=== PATIENT | female | born 1935 | race African-American/Black ===

== ENCOUNTER 2017-12-17 18:06 | Emergency (ER) | payer OTHER, MEDICAID ==
[2017-12-17 20:03] LABS: ADD MAN DIFF? NO
[2017-12-17 20:20] LABS: BASOPHILS % 0.2 % (0.0-2.0); EOSINOPHILS # 0.1 10^3/ul (0.0-0.5); EOSINOPHILS % 1.6 % (0.0-7.0); HEMATOCRIT 43.3 % (37.0-47.0); HEMOGLOBIN 14.1 g/dl (12.0-16.0); LYMPHOCYTES # 2.5 10^3/ul (0.8-2.9); LYMPHOCYTES % 44.1 % (15.0-51.0); MEAN CORPUSCULAR HEMOGLOBIN 26.7 pg (29.0-33.0); MEAN CORPUSCULAR HGB CONC 32.6 g/dl (32.0-37.0); MEAN CORPUSCULAR VOLUME 81.9 fl (82.0-101.0); MEAN PLATELET VOLUME 11.7 fl (7.4-10.4); MONOCYTE # 0.3 10^3/ul (0.3-0.9); MONOCYTES % 5.9 % (0.0-11.0); NEUTROPHIL # 2.7 10^3/ul (1.6-7.5); NEUTROPHILS % 47.8 % (39.0-77.0); PLATELET COUNT 176 10^3/UL (140-415); RED BLOOD COUNT 5.29 10^6/ul (4.20-5.40); RED CELL DISTRIBUTION WIDTH 14.9 % (11.5-14.5)
[2017-12-17 20:20] LABS: WHITE BLOOD COUNT 5.6 10^3/ul (4.8-10.8)
[2017-12-17] MEDS: SOD CHLORIDE 0.9% 1,000 ML IV (20:24)
[2017-12-17] MEDS: morphine 4 MG/ML VIAL IV (20:24)
[2017-12-17] MEDS: ONDANSETRON 4 MG INJ IV (20:24)
[2017-12-17 20:56] LABS: ADD UMIC YES; ALANINE AMINOTRANSFERASE 15 IU/L (13-69); ALBUMIN 4.4 g/dl (3.3-4.9); ALBUMIN/GLOBULIN RATIO 0.97; ALKALINE PHOSPHATASE 70 IU/L (42-121); ANION GAP 16 (8-16); ASPARTATE AMINO TRANSFERASE 28 IU/L (15-46); BILIRUBIN,INDIRECT 0.6 mg/dl (0-1.1); BILIRUBIN,TOTAL 0.6 mg/dl (0.2-1.3); BLOOD UREA NITROGEN 16 mg/dl (7-20); CARBON DIOXIDE 30 mmol/L (21-31); CHLORIDE 99 mmol/L (97-110); CREATININE 1.63 mg/dl (0.44-1.00); GLUCOSE 76 mg/dl (70-220); LIPASE 53 U/L (23-300); POTASSIUM 3.4 mmol/L (3.5-5.1); SODIUM 142 mmol/L (135-144); TOTAL PROTEIN 8.9 g/dl (6.1-8.1); UR ASCORBIC ACID NEGATIVE (NEGATIVE); UR BACTERIA FEW /HPF (NONE SEEN); UR BILIRUBIN (Dip) NEGATIVE (NEGATIVE); UR BLOOD (Dip) 3+ mg/dL (NEGATIVE); UR CLARITY CLOUDY (CLEAR); UR COLOR YELLOW (YELLOW); UR GLUCOSE (Dip) NEGATIVE (NEGATIVE); UR HYALINE CAST FEW /HPF (NONE SEEN); UR KETONES (Dip) NEGATIVE (NEGATIVE); UR LEUKOCYTE ESTERASE (Dip) 3+ Leu/ul (NEGATIVE); UR MUCUS FEW /HPF (NONE SEEN); UR NITRITE (Dip) NEGATIVE (NEGATIVE); UR RBC 98 /HPF (0-5); UR SPECIFIC GRAVITY (Dip) 1.014 (1.003-1.030); UR SQUAMOUS EPITHELIAL CELL MODERATE /HPF (FEW); UR TOTAL PROTEIN (Dip) 2+ mg/dl (NEGATIVE); UR TRANSITIONAL EPI CELL FEW /HPF (NONE SEEN); UR UROBILINOGEN (Dip) NEGATIVE (NEGATIVE); UR WBC 23 /HPF (0-5)
[2017-12-17 21:07] LABS: TROPONIN-I 0.022 ng/ml (0.00-0.12)
[2017-12-17] MEDS: CIPROFLOXACIN 500 MG TAB PO (22:22)
[2017-12-17] MEDS: POTASSIUM CHLORIDE (SR) 20 MEQ TAB PO (22:22)
== END 2017-12-17 22:50 | disposition home or self-care (01) ==
LOC: E/R 18:06
DX: N30.90 Cystitis, unspecified without hematuria (principal); E87.6 Hypokalemia; I10 Essential (primary) hypertension; I25.10 Atherosclerotic heart disease of native coronary artery without angina pectoris; R51 Headache; Z79.01 Long term (current) use of anticoagulants
CPT/HCPCS: 36415; 70450; 71045; 80053; 81001; 83690; 84484; 85025; 93005; 96374; 96375; 99285-25

== ENCOUNTER 2018-01-22 10:40 | Emergency (ER) | payer OTHER, MEDICAID ==
[2018-01-22] MEDS: SOD CHLORIDE 0.9% 1,000 ML IV (11:45)
[2018-01-22] MEDS: LIDOCAINE/MYLANTA 40 ML BTL PO (11:49)
[2018-01-22] MEDS: BELLADONNA/PHENOBARBITAL TAB PO (11:49)
[2018-01-22 12:07] LABS: ADD MAN DIFF? NO; BASOPHILS % 0.6 % (0.0-2.0); EOSINOPHILS # 0.1 10^3/ul (0.0-0.5); HEMATOCRIT 39.9 % (37.0-47.0); HEMOGLOBIN 12.9 g/dl (12.0-16.0); LYMPHOCYTES % 55.1 % (15.0-51.0); MEAN CORPUSCULAR HEMOGLOBIN 26.8 pg (29.0-33.0); MEAN CORPUSCULAR HGB CONC 32.3 g/dl (32.0-37.0); MONOCYTE # 0.3 10^3/ul (0.3-0.9); MONOCYTES % 7.1 % (0.0-11.0); NEUTROPHIL # 1.2 10^3/ul (1.6-7.5); NEUTROPHILS % 34.6 % (39.0-77.0); PLATELET COUNT 189 10^3/UL (140-415); RED BLOOD COUNT 4.81 10^6/ul (4.20-5.40); RED CELL DISTRIBUTION WIDTH 15.2 % (11.5-14.5)
[2018-01-22 12:07] LABS: WHITE BLOOD COUNT 3.5 10^3/ul (4.8-10.8)
[2018-01-22 12:25] LABS: ALANINE AMINOTRANSFERASE 18 IU/L (13-69); ALBUMIN 3.7 g/dl (3.3-4.9); ALBUMIN/GLOBULIN RATIO 1.02; ALKALINE PHOSPHATASE 49 IU/L (42-121); ANION GAP 12 (8-16); ASPARTATE AMINO TRANSFERASE 22 IU/L (15-46); BILIRUBIN,INDIRECT 0.7 mg/dl (0-1.1); BILIRUBIN,TOTAL 0.7 mg/dl (0.2-1.3); BLOOD UREA NITROGEN 21 mg/dl (7-20); CALCIUM 9.8 mg/dl (8.4-10.2); CARBON DIOXIDE 34 mmol/L (21-31); CHLORIDE 104 mmol/L (97-110); CREATININE 1.06 mg/dl (0.44-1.00); GLUCOSE 102 mg/dl (70-220); LIPASE 49 U/L (23-300); POTASSIUM 3.9 mmol/L (3.5-5.1); SODIUM 146 mmol/L (135-144); TOTAL PROTEIN 7.3 g/dl (6.1-8.1)
[2018-01-22 12:40] LABS: TROPONIN-I < 0.012 ng/ml (0.000-0.120)
[2018-01-22] MEDS: ONDANSETRON 4 MG INJ IV (13:14)
[2018-01-22] MEDS: morphine 2 MG INJ IV (13:14)
[2018-01-22 14:06] LABS: ADD UMIC YES; UR ASCORBIC ACID NEGATIVE (NEGATIVE); UR BACTERIA FEW /HPF (NONE SEEN); UR BILIRUBIN (Dip) NEGATIVE (NEGATIVE); UR BLOOD (Dip) 1+ mg/dL (NEGATIVE); UR CLARITY CLEAR (CLEAR); UR COLOR YELLOW (YELLOW); UR GLUCOSE (Dip) NEGATIVE (NEGATIVE); UR KETONES (Dip) NEGATIVE (NEGATIVE); UR LEUKOCYTE ESTERASE (Dip) 2+ Leu/ul (NEGATIVE); UR NITRITE (Dip) NEGATIVE (NEGATIVE); UR RBC 3 /HPF (0-5); UR SPECIFIC GRAVITY (Dip) 1.009 (1.003-1.030); UR SQUAMOUS EPITHELIAL CELL FEW /HPF (FEW); UR TOTAL PROTEIN (Dip) NEGATIVE (NEGATIVE); UR UROBILINOGEN (Dip) NEGATIVE (NEGATIVE); UR WBC 10 /HPF (0-5)
[2018-01-22] MEDS: SOD CHLORIDE 0.9% 100 ML (15:44)
[2018-01-22] MEDS: IODIXANOL LOCM 100 ML BTL (15:44)
== END 2018-01-22 18:40 | disposition home or self-care (01) ==
LOC: E/R 18:40
DX: K59.00 Constipation, unspecified (principal); R53.1 Weakness; I48.2 Chronic atrial fibrillation; I10 Essential (primary) hypertension; I25.10 Atherosclerotic heart disease of native coronary artery without angina pectoris; Z79.01 Long term (current) use of anticoagulants
CPT/HCPCS: 36415; 71045; 74177; 80053; 81001; 83690; 84484; 85025; 87086; 93005; 96374; 96375; 99285-25

== ENCOUNTER 2018-10-09 19:19 | Inpatient (IN) | payer OTHER, MEDICAID ==
[2018-10-09 20:49] LABS: ADD MAN DIFF? NO
[2018-10-09 20:50] LABS: WHITE BLOOD COUNT 5.8 10^3/ul (4.8-10.8)
[2018-10-09 20:50] LABS: BASOPHILS % 0.2 % (0.0-2.0); EOSINOPHILS # 0.1 10^3/ul (0.0-0.5); EOSINOPHILS % 0.9 % (0.0-7.0); HEMATOCRIT 41.1 % (37.0-47.0); HEMOGLOBIN 13.5 g/dl (12.0-16.0); LYMPHOCYTES # 1.7 10^3/ul (0.8-2.9); LYMPHOCYTES % 30.1 % (15.0-51.0); MEAN CORPUSCULAR HEMOGLOBIN 27.3 pg (29.0-33.0); MEAN CORPUSCULAR HGB CONC 32.8 g/dl (32.0-37.0); MEAN PLATELET VOLUME 10.7 fl (7.4-10.4); MONOCYTE # 0.4 10^3/ul (0.3-0.9); MONOCYTES % 6.6 % (0.0-11.0); NEUTROPHIL # 3.6 10^3/ul (1.6-7.5); NEUTROPHILS % 61.9 % (39.0-77.0); PLATELET COUNT 242 10^3/UL (140-415); RED BLOOD COUNT 4.95 10^6/ul (4.20-5.40); RED CELL DISTRIBUTION WIDTH 13.6 % (11.5-14.5)
[2018-10-09 20:56] LABS: ADD UMIC YES; UR ASCORBIC ACID 40 mg/dL (NEGATIVE); UR BILIRUBIN (Dip) NEGATIVE (NEGATIVE); UR BLOOD (Dip) NEGATIVE (NEGATIVE); UR CLARITY SLIGHTLY CLOUDY (CLEAR); UR COLOR YELLOW (YELLOW); UR GLUCOSE (Dip) NEGATIVE (NEGATIVE); UR KETONES (Dip) NEGATIVE (NEGATIVE); UR LEUKOCYTE ESTERASE (Dip) 2+ Leu/ul (NEGATIVE); UR NITRITE (Dip) NEGATIVE (NEGATIVE); UR RBC 4 /HPF (0-5); UR SPECIFIC GRAVITY (Dip) 1.012 (1.003-1.030); UR SQUAMOUS EPITHELIAL CELL FEW /HPF (FEW); UR TOTAL PROTEIN (Dip) NEGATIVE (NEGATIVE); UR UROBILINOGEN (Dip) NEGATIVE (NEGATIVE); UR WBC 22 /HPF (0-5)
[2018-10-09] MEDS: SOD CHLORIDE 0.9% 1,000 ML IV (21:02)
[2018-10-09] MEDS: morphine 2 MG INJ IV (21:02)
[2018-10-09] MEDS: FAMOTIDINE 20 MG INJ IV (21:03)
[2018-10-09] MEDS: ONDANSETRON 4 MG INJ IV (21:03)
[2018-10-09 21:14] LABS: ALKALINE PHOSPHATASE 71 IU/L (42-121); ANION GAP 9 (5-13); ASPARTATE AMINO TRANSFERASE 31 IU/L (15-46); BILIRUBIN,INDIRECT 0.5 mg/dl (0-1.1); BILIRUBIN,TOTAL 0.5 mg/dl (0.2-1.3); BLOOD UREA NITROGEN 24 mg/dl (7-20); CALCIUM 10.3 mg/dl (8.4-10.2); CARBON DIOXIDE 31 mmol/L (21-31); CHLORIDE 95 mmol/L (97-110); CREATININE 1.26 mg/dl (0.44-1.00); GLUCOSE 163 mg/dl (70-220); LIPASE 32 U/L (23-300); SODIUM 135 mmol/L (135-144); TOTAL PROTEIN 8.4 g/dl (6.1-8.1)
[2018-10-09 21:15] LABS: ALANINE AMINOTRANSFERASE < 6 IU/L (13-69)
[2018-10-09 21:25] LABS: TROPONIN-I < 0.012 ng/ml (0.000-0.120)
[2018-10-09] MEDS: NITROFURANTOIN (SR) 100 MG CAP PO (23:28)
[2018-10-09] MEDS ORDERED: ONDANSETRON 4 MG INJ IV (23:30)
[2018-10-09] MEDS ORDERED: ACETAMINOPHEN 325 MG TAB PO (23:30)
[2018-10-10] MEDS ORDERED: NACL 0.9% 3 ML SYG IV (02:00)
[2018-10-10] MEDS ORDERED: ACETAMINOPHEN 325 MG TAB PO (02:00)
[2018-10-10] MEDS ORDERED: ONDANSETRON 4 MG INJ IV (02:00)
[2018-10-10] MEDS: POTASSIUM CHLORIDE (SR) 20 MEQ TAB PO ×2 (02:16→18:58)
[2018-10-10] MEDS: SOD CHLORIDE 0.9% 1,000 ML IV ×2 (02:19→21:42)
[2018-10-10] MEDS: PANTOPRAZOLE (EC) 40 MG TAB PO (05:36)
[2018-10-10] MEDS ORDERED: PANTOPRAZOLE (EC) 40 MG TAB PO (06:00)
[2018-10-10] MEDS ORDERED: DILTIAZEM-D5W 125MG/125ML DRIP 125 ML IV (08:00)
[2018-10-10] MEDS ORDERED: SUCRALFATE (100 MG/ML) 10ML CUP PO (09:00)
[2018-10-10] MEDS: SUCRALFATE (100 MG/ML) 10ML CUP PO ×4 (10:04→20:28)
[2018-10-10] MEDS: APIXABAN 5 MG TABLET PO ×2 (10:04→20:29)
[2018-10-10] MEDS: HYDROCODONE/APAP (5/325) TAB PO ×2 (13:42→23:48)
[2018-10-10] MEDS: DRONEDARONE HYDROCHLORIDE 400 MG TAB PO (18:58)
[2018-10-10] MEDS: CYCLOBENZAPRINE 10 MG TAB PO (18:59)
[2018-10-10] MEDS: MONTELUKAST 10 MG TAB PO (20:28)
[2018-10-11 05:49] LABS: ADD MAN DIFF? NO
[2018-10-11 05:55] LABS: BASOPHILS % 0.5 % (0.0-2.0); EOSINOPHILS # 0.1 10^3/ul (0.0-0.5); EOSINOPHILS % 2.3 % (0.0-7.0); HEMOGLOBIN 10.9 g/dl (12.0-16.0); LYMPHOCYTES # 1.9 10^3/ul (0.8-2.9); LYMPHOCYTES % 47.3 % (15.0-51.0); MEAN CORPUSCULAR HEMOGLOBIN 27.6 pg (29.0-33.0); MEAN CORPUSCULAR HGB CONC 32.1 g/dl (32.0-37.0); MEAN CORPUSCULAR VOLUME 86.1 fl (82.0-101.0); MEAN PLATELET VOLUME 11.2 fl (7.4-10.4); MONOCYTE # 0.3 10^3/ul (0.3-0.9); MONOCYTES % 8.6 % (0.0-11.0); NEUTROPHIL # 1.6 10^3/ul (1.6-7.5); PLATELET COUNT 204 10^3/UL (140-415); RED BLOOD COUNT 3.95 10^6/ul (4.20-5.40); RED CELL DISTRIBUTION WIDTH 13.8 % (11.5-14.5)
[2018-10-11] MEDS: PANTOPRAZOLE (EC) 40 MG TAB PO (06:04)
[2018-10-11 06:19] LABS: HEMOGLOBIN A1C 5.7 % (0-5.9)
[2018-10-11 06:20] LABS: ALANINE AMINOTRANSFERASE 6 IU/L (13-69); ALBUMIN 3.3 g/dl (3.3-4.9); ALBUMIN/GLOBULIN RATIO 0.91; ALKALINE PHOSPHATASE 46 IU/L (42-121); ANION GAP 8 (5-13); ASPARTATE AMINO TRANSFERASE 25 IU/L (15-46); BILIRUBIN,INDIRECT 0.2 mg/dl (0-1.1); BILIRUBIN,TOTAL 0.2 mg/dl (0.2-1.3); BLOOD UREA NITROGEN 11 mg/dl (7-20); CALCIUM 9.2 mg/dl (8.4-10.2); CARBON DIOXIDE 33 mmol/L (21-31); CHLORIDE 101 mmol/L (97-110); CREATININE 0.93 mg/dl (0.44-1.00); GLUCOSE 118 mg/dl (70-220); MAGNESIUM 1.8 mg/dl (1.7-2.5); POTASSIUM 4.5 mmol/L (3.5-5.1); SODIUM 142 mmol/L (135-144); TOTAL PROTEIN 6.9 g/dl (6.1-8.1)
[2018-10-11] MEDS: DRONEDARONE HYDROCHLORIDE 400 MG TAB PO ×2 (09:15→18:07)
[2018-10-11] MEDS: SUCRALFATE (100 MG/ML) 10ML CUP PO ×4 (09:15→21:00)
[2018-10-11] MEDS: APIXABAN 5 MG TABLET PO ×2 (09:16→21:00)
[2018-10-11] MEDS: SOD CHLORIDE 0.9% 1,000 ML IV (18:08)
[2018-10-11] MEDS: MONTELUKAST 10 MG TAB PO (21:00)
[2018-10-11] MEDS: HYDROCODONE/APAP (5/325) TAB PO (21:09)
[2018-10-12] MEDS: PANTOPRAZOLE (EC) 40 MG TAB PO (05:34)
[2018-10-12] MEDS: SOD CHLORIDE 0.9% 1,000 ML IV ×2 (08:07→13:42)
[2018-10-12] MEDS: APIXABAN 5 MG TABLET PO (08:15)
[2018-10-12] MEDS: SUCRALFATE (100 MG/ML) 10ML CUP PO ×2 (08:16→13:26)
[2018-10-12] MEDS: DRONEDARONE HYDROCHLORIDE 400 MG TAB PO (08:17)
[2018-10-12] MEDS: POLYETHYLENE GLYCOL 17 GM PACKET PO (15:00)
== END 2018-10-12 16:20 | disposition home or self-care (01) | DRG 309 ==
LOC: 6WM 23:20 → E/R 19:19 → 6WM 10-10 23:29
DX: I48.0 Paroxysmal atrial fibrillation (principal); N17.9 Acute kidney failure, unspecified; I47.2 Ventricular tachycardia; E87.6 Hypokalemia; I10 Essential (primary) hypertension; I25.10 Atherosclerotic heart disease of native coronary artery without angina pectoris; G89.29 Other chronic pain; E86.0 Dehydration; R10.13 Epigastric pain; M54.2 Cervicalgia; I25.2 Old myocardial infarction; Z79.01 Long term (current) use of anticoagulants
CPT/HCPCS: 36415; 71045; 74176; 80053; 81001; 83036; 83690; 83735; 84484; 85025; 87400; 93005; 93306; 96374; 96375; 97161; 97167; 99285-25

== ENCOUNTER 2018-10-16 14:39 | Emergency (ER) | payer OTHER, MEDICAID ==
[2018-10-16 15:21] LABS: ADD MAN DIFF? NO
[2018-10-16 15:22] LABS: BASOPHILS % 0.5 % (0.0-2.0); EOSINOPHILS # 0.1 10^3/ul (0.0-0.5); EOSINOPHILS % 3.5 % (0.0-7.0); HEMATOCRIT 31.4 % (37.0-47.0); LYMPHOCYTES # 1.7 10^3/ul (0.8-2.9); LYMPHOCYTES % 41.9 % (15.0-51.0); MEAN CORPUSCULAR HEMOGLOBIN 27.5 pg (29.0-33.0); MEAN CORPUSCULAR HGB CONC 31.8 g/dl (32.0-37.0); MEAN CORPUSCULAR VOLUME 86.5 fl (82.0-101.0); MONOCYTE # 0.3 10^3/ul (0.3-0.9); MONOCYTES % 7.5 % (0.0-11.0); NEUTROPHIL # 1.9 10^3/ul (1.6-7.5); NEUTROPHILS % 46.4 % (39.0-77.0); PLATELET COUNT 237 10^3/UL (140-415); RED BLOOD COUNT 3.63 10^6/ul (4.20-5.40); RED CELL DISTRIBUTION WIDTH 14.1 % (11.5-14.5)
[2018-10-16 15:38] LABS: INR 1.02; PROTIME 13.5 Sec (11.9-14.9); PT RATIO 1.1
[2018-10-16 15:41] LABS: ALANINE AMINOTRANSFERASE 20 IU/L (13-69); ALBUMIN 3.6 g/dl (3.3-4.9); ALKALINE PHOSPHATASE 56 IU/L (42-121); ANION GAP 0 (5-13); ASPARTATE AMINO TRANSFERASE 31 IU/L (15-46); BILIRUBIN,INDIRECT 0.1 mg/dl (0-1.1); BILIRUBIN,TOTAL 0.1 mg/dl (0.2-1.3); BLOOD UREA NITROGEN 16 mg/dl (7-20); CALCIUM 9.4 mg/dl (8.4-10.2); CARBON DIOXIDE 36 mmol/L (21-31); CHLORIDE 102 mmol/L (97-110); CREATININE 0.88 mg/dl (0.44-1.00); GLUCOSE 82 mg/dl (70-220); MAGNESIUM 1.9 mg/dl (1.7-2.5); POTASSIUM 3.6 mmol/L (3.5-5.1); SODIUM 138 mmol/L (135-144); TOTAL PROTEIN 7.2 g/dl (6.1-8.1)
[2018-10-16 15:52] LABS: TROPONIN-I < 0.012 ng/ml (0.000-0.120)
== END 2018-10-16 19:17 | disposition home or self-care (01) ==
LOC: E/R 14:39
DX: R53.1 Weakness (principal); I10 Essential (primary) hypertension; I25.10 Atherosclerotic heart disease of native coronary artery without angina pectoris; R41.82 Altered mental status, unspecified; Z79.01 Long term (current) use of anticoagulants; Z98.61 Coronary angioplasty status
CPT/HCPCS: 36415; 70450; 71045; 80053; 83735; 84484; 85025; 85610; 93005; 99285-25